=== PATIENT | female | born 1980 | race Caucasian/White ===

== ENCOUNTER 2020-08-26 16:11 | Emergency (ER) | payer OTHER, SELFPAY ==
[2020-08-26 16:22] VITALS: BP 141/80; PULSE 73; RESP 18; TEMP 36.8; O2SAT 100
--- NOTE | 2020-08-26 16:23 | ED.GENADULT ---
HPI - General Adult General Chief complaint: Extremity Problem,Nontraumatic Stated complaint: R/hand numb Time Seen by Provider: 08/26/20 16:23 Source: patient and RN notes reviewed Mode of arrival: ambulatory Limitations: no limitations History of Present Illness HPI narrative: 40-year-old female presents with complains of right hand numbness approximately 60 minutes prior to arrival to [facility]. Tina reports she had finished meal prepping (11:00-15:00) when she sat down watching television with hands on lap and RT hand went numb for approximately 5 minutes. Currently having mild numbness. No radiation of pain. No loss of mobility. No exacerbating factors. Relieving on own. Dominant hand is the RIGHT HAND. Tina denies loss of consciousness, seizure activity, dizziness, syncopal episodes, headaches, otalgia, feeling anxious or depressed. No suspected abuse. LMP 2 weeks ago. Remains active. The patient reports she have not been diagnosed with COVID-19. The patient reports she is not waiting for the results of a COVID-19 lab test. The patient reports she do not have fever, chills, weakness, or fatigue. The patient reports she do not have a new or worsening cough or shortness of breath. Denies chest pain. The patient reports she do not have any rhinorrhea, congestion, sore throat, loss of taste, nausea, vomiting, abdominal pain, and diarrhea. Tolerating po intake well. Denies recent traveling. Denies concerns for COVID-19 or exposures been home with limited outdoor exposure except for essential household needs, work, and return home. At this time, patient is not suspected of having COVID-19. Some parts of this dictation were generated by voice recognition software and may contain typographical and/or grammatical inaccuracies. Related Data Allergies Allergy/AdvReac Type Severity Reaction Status Date / Time No Known Allergies Allergy Verified 08/26/20 16:14 Review of Systems Review of Systems: Narrative: CONSTITUTIONAL: Denies fever, chills, sweats. EYES: Denies visual changes, redness, discharge. ENT: Denies rhinorrhea, congestion, sore throat, otalgia. CARDIOVASCULAR: Denies chest pain, palpitations, edema. RESPIRATORY: Denies dyspnea, wheezing, cough. GASTROINTESTINAL: Denies abdominal pain, nausea, vomiting, diarrhea. SKIN: Denies rash or itching. MUSCULOSKELETAL: Denies acute back pain or myalgia. Complains of right hand numbness. NEUROLOGIC: Denies numbness or focal weakness. PSYCHIATRIC: Denies SI, HI, visual or auditory hallucination, anxiety or depression. All other systems reviewed & are unremarkable except as noted in HPI and below. [facility] Past Medical History Medical History (Updated 08/26/20 @ 17:30 by TERRIE Roman) Anxiety Tina report situational Surgical History Surgical History (Updated 08/26/20 @ 17:30 by TERRIE Roman) No significant past surgical history Family History Family History Father Diabetes mellitus Hypertension Family history of cardiovascular disease Acute myocardial infarction, Onset Age: 50 Family history of kidney disease Family history of hypothyroidism Colon polyp Mother Hypertension Family history of breast disorder Other Family history of allergic disorder Social History Social History (Updated 08/26/20 @ 17:31 by TERRIE Roman) Smoking status: Never smoker Tobacco type: cigarettes Second hand tobacco smoke exposure: No Alcohol intake: current Substance use: never Living arrangements: with family Occupation/Education: occupation Gender identity (if verbalized by the patient): Female Sexual Orientation (if Verbalized by the Patient): Straight or Heterosexual Comments At time of signature, agree with nurse past medical, surgical, social, and family history. There is no relevant family history pertinent to the presenting complain
[2020-08-26 16:26] VITALS: BP 141/80; PULSE 73; RESP 18; TEMP 36.8; O2SAT 100
[2020-08-26 16:41] LABS: Glucose Point of Care 80 (65-105)
== END 2020-08-26 16:54 | disposition home or self-care (01) ==
PROVIDERS: Emergency Provider Nurse Practitioner Family; PCP Family Medicine
DX: R20.2 Paresthesia of skin (principal); F41.9 Anxiety disorder, unspecified
CPT/HCPCS: 82948; 99212; G0463

== ENCOUNTER 2021-07-07 21:30 | Emergency (ER) | payer OTHER, SELFPAY ==
--- NOTE | ~2021-07-07 | CT_ITS ---
EXAMINATION: CT brain wo con, CT cervical spine wo con EXAM DATE: 07/07/2021 22:27 INDICATION: Fall, posterior head injury. Dizziness. TECHNIQUE: Spiral CT of the head was performed without contrast. Axial, coronal and sagittal images were reviewed. Spiral CT of the cervical spine was performed without contrast. Axial images were rev iewed. Coronal and sagittal reformatted images were also reviewed. The dose-length product (DLP) fo r this examination was 529.67 (accession [id number]), 315.86 (accession [id number]) mGy-cm. The exposure was tailored according to patient size, and iterative reconstruction (ASIR) was used as additional dose reduction technique. There is no prior study for comparison. FINDINGS: HEAD CT: There is no acute intraparenchymal hemorrhage. No evidence of intraparenchymal brain mass l esion. No evidence of acute infarction. There is no mass effect or midline shift. There is no obstru ctive hydrocephalus suspected. There are no extra-axial collections. There are no acute calvarial f ractures. The orbits are unremarkable. Soft tissue is unremarkable. Minimal ethmoid mucoperiosteal thickening. CERVICAL CT: There is no evidence of acute cervical fracture. The odontoid process is intact. Pre- dens space is normal. Prevertebral soft tissue is normal. There are no soft tissue abnormalities id entified. There is no disc space widening or traumatic vertebral body subluxation suspected. Verteb ral body and disc heights are well-maintained. Mild to moderate cervical spondylosis. IMPRESSION: 1. No acute intracranial findings or cervical fracture. Reviewed, dictated and finalized at location B. LE FARMER IMPRESSION: 1. No acute intracranial findings or cervical fracture.
[2021-07-07 21:33] VITALS: BP 141/95; PULSE 89; RESP 18; TEMP 35.9; O2SAT 98
--- NOTE | 2021-07-07 21:43 | ED.HEATRA ---
HPI - Head Injury General Chief complaint: Head Injury Stated complaint: head trauma Time Seen by Provider: 07/07/21 21:39 Source: RN notes reviewed History of Present Illness HPI Narrative: Patient presents to emergency department from home for a fall. Patient states she was playing soccer just prior to arrival when she was checked into the wall and fell striking her head patient states she struck her head very hard and had immediate pain and front of her head and in the posterior neck she states that she was very woozy and had difficult time initially getting up and is been dizzy since that time she states she did vomit x1 and notes a diffuse headache she denies any loss of consciousness she denies any vision changes numbness or tingling in extremities, chest pain shortness of breath abdominal pain or any other symptoms states she not take anything for the pain Related Data Allergies Allergy/AdvReac Type Severity Reaction Status Date / Time No Known Allergies Allergy Verified 05/09/21 14:17 Review of Systems Review of Systems: Gen.: Denies fevers or chills Eyes: Denies eye pain or visual change ENT: Denies congestion Respiratory: Denies shortness of breath CV: Denies chest pain GI: Denies abdominal pain reports nausea vomiting x1 denies chance of Musculoskeletal: Reports neck pain Neuro: See HPI Skin: Denies rash Except as documented, all other systems reviewed and negative [facility] Past Medical History Medical History Anxiety Tina report situational Surgical History Surgical History (Updated 08/26/20 @ 17:30 by TERRIE Roman) No significant past surgical history Family History Family History Father Diabetes mellitus Hypertension Family history of cardiovascular disease Acute myocardial infarction, Onset Age: 50 Family history of kidney disease Family history of hypothyroidism Colon polyp Mother Hypertension Family history of breast disorder Other Family history of allergic disorder Social History Social History Smoking status: Never smoker Tobacco type: cigarettes Second hand tobacco smoke exposure: No Alcohol intake: current Substance use: never Gender identity (if verbalized by the patient): Female Sexual Orientation (if Verbalized by the Patient): Straight or Heterosexual Exam Narrative: APPEARANCE: No acute distress, nontoxic, resting in bed EYES: EOMI HEENT: Normocephalic, atraumatic, TMs clear bilaterally nares patent or mucosa moist no facial tenderness Neck: Supple no midline tenderness palpation tender palpation by bladder prior to muscles C1-4 RESPIRATORY: No respiratory distress Clear to auscultation bilaterally with no rhonchi wheezing or rales. CARDIOVASCULAR: Regular rate and rhythm without murmurs rubs or gallops. ABDOMINAL: Soft, nontender, nondistended, no rebound or guarding MUSCULOSKELETAl: Moves all extremities. No clubbing, cyanosis or edema. NEURO: Awake and alert x 4. Following commands, speech normal, no focal deficits SKIN:: Warm, dry. No rashes lesions or abrasions PSYCHIATRIC: Normal affect/mood, Course Course Emergency Course: Discussed with patient results of workup and diagnosis. Discussed need for follow-up with primary care, proper use of medication, and reasons to return to the emergency department. Patient understands and agrees to current treatment plan Vital Signs Vital signs: Vital Signs Temperature 96.7 F L 07/07/21 21:33 Pulse Rate 89 07/07/21 21:33 Respiratory Rate 18 07/07/21 21:33 Blood Pressure 141/95 H 07/07/21 21:33 Pulse Oximetry 98 07/07/21 21: Temperature 96.7 F L 07/07/21 21:33 Pulse Rate 89 07/07/21 21:33 Respiratory Rate 18 07/07/21 21:33 Blood Pressure 141/95 H 07/07/21 21:33 Pulse Oximetry 98 11
[2021-07-07] MEDS: IBUPROFEN 600 MG TABLET PO (22:29)
[2021-07-07 22:55] VITALS: TEMP 35.9
== END 2021-07-07 23:40 | disposition home or self-care (01) ==
PROVIDERS: Emergency Provider Emergency Medicine; PCP Family Medicine
DX: S00.93XA Contusion of unspecified part of head, initial encounter (principal); S16.1XXA Strain of muscle, fascia and tendon at neck level, initial encounter; W22.8XXA Striking against or struck by other objects, initial encounter; Y93.66 Activity, soccer
CPT/HCPCS: 70450; 72125; 99284; A9270; L0140

== ENCOUNTER → 2021-09-18 15:30 | Outpatient (CLI) | payer OTHER, SELFPAY ==
--- NOTE | ~2021-09-18 | MM_ITS ---
EXAMINATION: MM screening tammy BI w josh HISTORY: Screening mammogram TECHNIQUE: Craniocaudal and mediolateral oblique 3-D tomosynthesis images were obtained and synthetic 2-D images were generated. CAD analysis was submitted and interpreted. COMPARISON: 02/09/2014 BREAST PARENCHYMAL COMPOSITION: There are scattered areas of fibroglandular density. FINDINGS: There is no evidence of suspicious mass, calcification, or architectural distortion to sugg est malignancy in either breast. There has been no suspicious interval change. IMPRESSION: 1. No mammographic evidence of malignancy. 2. Recommend routine screening mammography in one year. BI-RADS Category 1: Negative Reviewed, dictated and finalized at location A. E SET UP OPERATOR
== END ==
PROVIDERS: PCP Physician Assistant; Visit Provider Physician Assistant
DX: Z12.31 Encounter for screening mammogram for malignant neoplasm of breast (principal)
CPT/HCPCS: 77063; 77067

== ENCOUNTER 2021-09-30 18:22 | Emergency (ER) | payer OTHER, SELFPAY ==
--- NOTE | ~2021-09-30 | XR_ITS ---
EXAMINATION: XR ankle RT min 3V DATE: 09/30/2021 18:42 INDICATION: Right ankle injury. TECHNIQUE: 4 views of right ankle were obtained. COMPARISON: None. FINDINGS: Bone alignment is normal. No fracture. There is mild osteoarthritis of the naviculocuneifor m joint. There is mild osteoarthritis of ankle joint characterized by tiny osteophytes. There is ankl e soft tissue swelling, worse than lateral. IMPRESSION: 1. Mild polyarticular osteoarthritis. Reviewed, dictated and finalized at location E. NG MACHINE OPERATOR
[2021-09-30 18:30] VITALS: BP 126/74; PULSE 70; RESP 18; TEMP 36.7; O2SAT 99
--- NOTE | 2021-09-30 18:52 | ED.LOWEXIN ---
HPI - Extremity Injury (Lower) General Chief Complaint: Extremity Injury, Lower Stated Complaint: Rt Ankle Pain Time Seen by Provider: 09/30/21 18:45 Source: patient, family, RN notes reviewed and old records reviewed Mode of arrival: ambulatory Limitations: no limitations History of Present Illness HPI Narrative: 41 year old female who presents to express care with complaints of pain and swelling to her right ankle yesterday after playing soccer. Patient states that she was just jogging and felt a pop to the medial aspect of her right ankle with no acute trauma or any injury. Patient states that she has taras taking Ibuprofen, using ice and keeping her foot elevated but pain continues with some swelling. Patient reports that she has no tingling or numbness to her right foot, able to extend and flex foot on own power, increase discomfort is noted on weight bearing. MD complaint: ankle injury Onset (ago): day(s) (1) Related Data Home Medications Medication Instructions Recorded Confirmed No Home Medications 09/30/21 09/30/21 Allergies Allergy/AdvReac Type Severity Reaction Status Date / Time Sulfa (Sulfonamide AdvReac Mild Rash Verified 09/30/21 18:45 Antibiotics) Review of Systems Review of Systems: CONSTITUTIONAL: Denies fever, chills, or sweats. EYES: Denies visual changes, redness, or discharge. ENT: Denies rhinorrhea, congestion, sore throat, or otalgia. CARDIOVASCULAR: Denies chest pain, palpitations, or edema. RESPIRATORY: Denies cough or dyspnea. GASTROINTESTINAL: Denies abdominal pain, nausea, vomiting, or diarrhea. GENITOURINARY: Denies dysuria or hematuria. SKIN: Denies rash or itching. MUSCULOSKELETAL: Denies back pain, positive medial right ankle joint pain with swelling, or myalgia. NEUROLOGIC: Denies headache, numbness, or weakness. PSYCHIATRIC: Denies anxiety or depression. All systems reviewed & are unremarkable except as noted in HPI and below PMF[facility] Past Medical History Medical History Anxiety Tina report situational Surgical History Surgical History No significant past surgical history Family History Family History Father Diabetes mellitus Hypertension Family history of cardiovascular disease Acute myocardial infarction, Onset Age: 50 Family history of kidney disease Family history of hypothyroidism Colon polyp Mother Hypertension Family history of breast disorder Other Family history of allergic disorder Social History Social History Smoking status: Never smoker Tobacco type: cigarettes Second hand tobacco smoke exposure: No Alcohol intake: current Substance use: never Gender identity (if verbalized by the patient): Female Sexual Orientation (if Verbalized by the Patient): Straight or Heterosexual Comments At time of signature, agree with nursing past medical, surgical, social and family history. There is no relevant family history pertinent to the presenting complaint Exam Narrative: GENERAL: Well-appearing, well-nourished, and in no acute distress. HEAD: Normocephalic, atraumatic. EYES: PERRLA and EOMI. ENT: Nares clear, no rhinorrhea or epistaxis. Mucous membranes moist. NECK: Supple, no lymphadenopathy CHEST: Clear to auscultation. No respiratory distress. SAO2 99% on room air HEART: Regular rate and rhythm. No murmur heard. Normal peripheral pulses. ABDOMEN: Soft, nontender, nondistended, normal active bowel sounds. EXTREMITIES: Normal range of motion. positive for moderate edema to right ankle, strong pedal and posterior tibial pulses, using crutches due to increased pain with weight bearing SKIN: Warm, dry, no rash. NEURO: No focal deficits. Alert and oriented x3. Course Course Level of Care: Express Care Visit Vital S
== END 2021-09-30 19:24 | disposition home or self-care (01) ==
PROVIDERS: Emergency Provider Registered Nurse; PCP Family Medicine
DX: M25.571 Pain in right ankle and joints of right foot (principal)
CPT/HCPCS: 73610; 99213; G0463

== ENCOUNTER → 2022-12-02 15:41 | Outpatient (CLI) | payer OTHER, SELFPAY ==
--- NOTE | ~2022-12-02 | MM_ITS ---
EXAMINATION: MM screening tammy BI w josh HISTORY: Screening mammogram TECHNIQUE: Craniocaudal and mediolateral oblique 3-D tomosynthesis images were obtained and synthetic 2-D images were generated. CAD analysis was submitted and interpreted. COMPARISON: 09/18/2021, 02/09/2014 bilateral screening mammogram examinations BREAST PARENCHYMAL COMPOSITION: There are scattered areas of fibroglandular density. FINDINGS: There is no evidence of suspicious mass, calcification, or architectural distortion to sugg est malignancy in either breast. There has been no suspicious interval change. IMPRESSION: 1. No mammographic evidence of malignancy. 2. Recommend routine screening mammography in one year. BI-RADS Category 1: Negative Reviewed, dictated and finalized at location A.
== END ==
PROVIDERS: PCP Emergency Medicine; Visit Provider Emergency Medicine
DX: Z12.31 Encounter for screening mammogram for malignant neoplasm of breast (principal)
CPT/HCPCS: 77063; 77067

== ENCOUNTER 2025-02-17 11:56 | Outpatient (CLI) | payer OTHER, SELFPAY ==
--- NOTE | ~2025-02-17 | MM_ITS ---
EXAMINATION: MM screening tammy BI w josh HISTORY: Screening mammogram TECHNIQUE: Craniocaudal and mediolateral oblique 3-D tomosynthesis images were obtained and synthetic 2-D images were generated. CAD analysis was submitted and interpreted. COMPARISON: 12/02/2022, 09/18/2021 BREAST PARENCHYMAL COMPOSITION:Not Dense. There are scattered areas of fibroglandular density. FINDINGS: No suspicious mass, calcification, or architectural distortion are identified in either horacio ast to suggest malignancy. There has been no suspicious interval change. IMPRESSION: No mammographic evidence of malignancy. Recommend routine screening mammography in one year. BI-RADS Category 1: Negative Reviewed, dictated and finalized at location .
== END 2025-02-17 11:57 | disposition home or self-care (01) ==
PROVIDERS: PCP Emergency Medicine; Visit Provider Family Medicine
DX: Z12.31 Encounter for screening mammogram for malignant neoplasm of breast (principal)
CPT/HCPCS: 77063; 77067